=== PATIENT | female | born 1960 | race Caucasian/White ===

== ENCOUNTER 2021-12-14 09:52 | Emergency (ER) | payer SELFPAY ==
[~2021-12-14] VITALS: Ht 167.6 cm; Wt 71.0 kg
[2021-12-14 09:59] VITALS: BP 121/61
[2021-12-14 10:27] LABS: APPEARANCE,URINE HAZY (CLEAR); BILIRUBIN,URINE NEGATIVE (NEGATIVE); GLUCOSE, URINE (UA) NEGATIVE (NEGATIVE); KETONES,URINE NEGATIVE (NEGATIVE); LEUKOCYTE ESTERASE ,URINE LARGE (NEGATIVE); NITRATE,URINE NEGATIVE (NEGATIVE); OCCULT BLOOD,URINE TRACE (NEGATIVE); PH,URINE 7.5 (5.0-8.0); PROTEIN,URINE 30-70 mg/dL (NEGATIVE); SPECIFIC GRAVITIY, URINE 1.021 (1.003-1.030); UROBILINOGEN,URINE <=1.0 mg/dL (<=1.0)
[2021-12-14 10:35] LABS: RBC,URINE 0-2 /HPF (0-2); WBC,URINE >100 /HPF (0-5)
[2021-12-14 10:36] LABS: BACTERIA,URINE Moderate /HPF (None Seen); SQUAMOUS EPITHELIAL CELL,UR Many /LPF (None Seen)
[2021-12-14] MEDS ORDERED: SULF-261 PO (11:13)
== END 2021-12-14 11:34 | disposition home or self-care (01) ==
LOC: EMS 09:52
DX: N39.0 Urinary tract infection, site not specified (principal); F31.9 Bipolar disorder, unspecified; E03.9 Hypothyroidism, unspecified; Z87.39 Personal history of other diseases of the musculoskeletal system and connective tissue; Z98.51 Tubal ligation status; Z88.8 Allergy status to other drugs, medicaments and biological substances
CPT/HCPCS: 81001; 87086; 99283